=== PATIENT | female | born 1990 ===

== ENCOUNTER 2017-03-07 10:15 | Emergency (ER) | payer OTHER ==
[2017-03-07 10:52] VITALS: BMI 29.2
[2017-03-07 11:05] LABS: RBC URINE 2 /hpf (0-3); URINE BACTERIA RARE (<OCC); URINE BILIRUBIN NEGATIVE (NEGATIVE); URINE BLOOD NEGATIVE (NEGATIVE); URINE COLOR YELLOW (YELLOW); URINE GLUCOSE (UA) NEG (Normal); URINE KETONE NEGATIVE (NEGATIVE); URINE LEUKOCYTE ESTERASE NEG Leu/uL (Negative); URINE PROTEIN NEGATIVE (NEGATIVE); URINE UROBILINOGEN 0.2-1.0 mg/dL (0.2-1.0); WBC URINE 1 /hpf (0-5)
--- NOTE | 2017-03-07 11:51 | OBHP ---
Datetime: 03/07/2017 11:00 IP Adm Impression: , intrauterine ; No Active Labor; Intact Membranes IP Admit Plan: Observation/Evaluation Admit Comment, IP Provider: 26yo IUP at 19w c/o lower abd pain x 3d left sided non-radiating; n o N/V/D; No SORM; no VB; +FM PMH: denies PSH: denies NKA PSOH: nathen smoking ETOH drugs A: IUP at 19w fibroid uterus PLAN: UA Pt requests sono...she has appt March 21 for level 2...will get limited exam. Spoke to Dr Ernandez Pelvic Type - PN: Adequate Extremities - PN: Normal Abdomen - PN: Normal Back - PN: Normal Breast - PN: Not Done Lungs - PN: Normal Heart - PN: Normal Thyroid - PN: Normal Neurologic - PN: Normal HEENT - PN: Normal General - PN: Normal Membranes, Provider: Intact Comments, ACOG Physical Exam: ROS: General: no fatigue; no wekaness HEENT: no BARRERA; no visual disut RESP: no cough; no SOB GI: noN/V/D : no F/U/D MS: no joint pain Pool Provider: Negative IP Hx Assessment: The History has been Reviewed and is Current EGA AdmitDate IP: 18.6 Vital Signs Provider: Reviewed; Within Normal Limits IP Chief Complaint: Other Dilatation, Provider: 0 Effacement, Provider: 0 Genitourinary Exam: Normal DTRs - PN: Normal
--- NOTE | 2017-03-07 13:02 | US ---
PROCEDURE: OB Pelvic Ultrasound HISTORY: 18w abd pain; hx fibroids COMPARISON: None available. FINDINGS: UTERUS: Gestational sac: Single intrauterine gestation. Heart rate: 132 bpm. age (Ultrasound estimated): 19 weeks +/- 1 weeks 2 days Delores-gestational hemorrhage: None. Date of delivery (Ultrasound estimated) : 08/01/2017 There is suspicious for posterior uterine fundus fibroid measures 6.1 x 5.7 x 6.2 centimeter. The placenta seen at the posterior wall. The fetus is seen at cephalic presentation at the time of this exam. CERVIX: Long and closed. No cervical abnormality seen. RIGHT OVARY: Was not visualized LEFT OVARY: Was not visualized FREE FLUID: None. OTHER FINDINGS: None. IMPRESSION: Single intrauterine live with ultrasound estimated gestational age of 19 weeks 0 day +/- 1 week 2 days. Estimated date of delivery by ultrasound is 08/01/2017. Suspicious for posterior fundal intramural/ submucosal fibroid measures 6.1 x 5.7 x 6.2 centimeter. Placenta seen at the posterior wall. Amount of amniotic fluid is adequate.
--- NOTE | 2017-03-08 06:28 | OBDCSUM ---
Datetime: 03/07/2017 13:51 Discharge Comment, Provider: dischsagred by Dr Parikh Discharge Diagnosis Prov Other: 19w preg
== END 2017-03-07 13:52 | disposition home or self-care (01) ==
LOC: H.EROB2 10:15
DX: O47.02 False labor before 37 completed weeks of gestation, second trimester (principal); Z3A.19 19 weeks gestation of pregnancy